=== PATIENT | male | born 1970 | race Caucasian/White ===

== ENCOUNTER 2016-07-31 18:52 | Observation (INO) | payer BC ==
[~2016-07-31] VITALS: Ht 177.8 cm; Wt 76.7 kg
[~2016-07-31 18:52] MED LIST: ALBUAER2 INH; SERT25TA PO
[2016-07-31] MEDS ORDERED: ASPIRIN 324 MG CHEW PO STA (19:28)
[2016-07-31 19:40] LABS: BASO % 0.5 %; BASO ABS # 0.05 K/uL (0-0.2); COMPLETE YES; EOS % 2.8 %; HEMATOCRIT 44.4 % (42-52); IG% 0.3 %; LYMPH % 22.2 %; LYMPH ABS # 2.05 K/uL (1.2-3.4); MEAN CELL VOLUME 100.9 fL (80-100); MEAN CORPUSCULAR HEMOGLOBIN 35.7 pg (25-34); MEAN CORPUSCULAR HGB CONC 35.4 g/dl (32-36); MEAN PLATELET VOLUME 9.1 fL (7.4-10.4); MONO % 9.1 %; NEUT % 65.1 %; PLATELET COUNT 341 K/uL (130-400); WHITE BLOOD COUNT 9.22 K/uL (4.8-10.8)
[2016-07-31 19:47] LABS: BUN/CREATININE RATIO 10.4 (10-20); CALCIUM 8.8 mg/dl (8.5-10.1); CREATININE 1.1 mg/dl (0.60-1.40); POTASSIUM 4.2 mmol/L (3.5-5.1)
[2016-07-31 19:53] LABS: PROTHROMBIN TIME (PATIENT) 10.5 SECONDS (9.0-12.0)
[2016-07-31] MEDS ORDERED: ONDANSETRON INJ 2 MG/ML 2 ML VIAL IV PRN (20:45)
[2016-07-31] MEDS ORDERED: NITROGLYCERIN 0.4 MG SL PER TAB CHARGE SL PRN (20:45)
[2016-07-31] MEDS ORDERED: ACETAMINOPHEN 325 MG TAB PO PRN (20:45)
--- NOTE | 2016-07-31 20:47 | DIAGNOSTIC IMAGING REPORT ---
CHEST ONE VIEW PORTABLE HISTORY: Atypical chest pain. COMPARISON: None. FINDINGS: The lungs are clear. Cardiac silhouette is normal in size. No pleural effusions. No pneumothorax. IMPRESSION: No acute process. Electronically signed by: Gordy Govea M.D. 07/31/2016 8:45 PM Dictated Date/Time: 07/31/2016 8:44 PM
[2016-07-31] MEDS ORDERED: IV FLUIDS COMPLETED PRN (21:00)
[2016-07-31 21:18] VITALS: BP 131/82; PULSE 60; TEMP 36.9; O2SAT 96
--- NOTE | 2016-07-31 22:21 | EMERGENCY ROOM VISIT NOTE ---
History Report prepared by Juan Carlos: Nichol Cam Under the Supervision of: Dr. Shiv Ring M.D. First contact with patient: 19:21 Chief Complaint: CHEST PAIN Stated Complaint: PRESSURE/PAIN IN CHEST Nursing Triage Summary: pt reports left sided chest pain for 3-4 days, no radiation, denies other s/s., denies cardiac hx. Patient spoke to primary care who advised patient to come to ED. History of Present Illness The patient is a 46 year old male who presents to the Emergency Room with complaints of intermittent chest pain that started approximately 3 to 4 days ago. He is accompanied by his . He rates his discomfort as a 3/10 and describes it as feeling like "pressure". He denies anything making his pain better or worse. He has not taken anything for his discomfort yet. Today he cleared his driveway of snow, and had no problems, but last night walking up a flight of stairs did exacerbate his discomfort. He denies any acute shortness of breath. He reports last night he woke up very diaphoretic and had to "towel himself off". He did not have any chest discomfort at that time however. He is a current smoker and admits to a chronic smoker's cough. The patient denies any recent fevers, abdominal pain, numbness or weakness in his extremities or swelling in his legs. He does not have any personal cardiac history and states he doesn't think there's a family history of heart disease, but he is not completely sure. Source of History: patient Onset: 3 to 4 days [place] Position: chest Symptom Intensity: 3/10 Quality: pressure Timing: intermittent, resolved Associated Symptoms: + cough, + diaphoresis, No SOB, No abdominal pain, No fevers, No numbness (numbness in extremities), No weakness (weakness in extremities) Review of Systems See HPI for pertinent positives & negatives. A total of 10 systems reviewed and were otherwise negative. Past Medical & Surgical Medical Problems: (1) Atypical chest pain (2) Cystic acne (3) Folliculitis (4) Syncope Surgical Problems: (1) History of hernia surgery Family History Patient reports no known family medical history. Social History Smoking Status: Current Every Day Smoker Alcohol Use: occasionally Marital Status: Housing Status: lives with family Occupation Status: employed Current/Historical Medications No Active Prescriptions or Reported Meds Allergies Coded Allergies: No Known Allergies (Unverified , 3/10/17) Physical Exam Vital Signs Date Time Temp Pulse Resp B/P Pulse Ox O2 Delivery O2 Flow Rate FiO2 07/31/16 20:04 65 18 117/69 100 Room Air 07/31/16 19:34 Room Air 07/31/16 19:17 62 07/31/16 19:01 96 Room Air 07/31/16 19:00 37.5 78 20 130/87 95 Room Air Physical Exam Constitutional: Vital signs reviewed. Eyes: Pupils are equal round reactive to light. Conjunctiva are noninjected. ENT: Pharynx is clear without erythema or exudate. Mucous membranes are moist. Neck supple without meningeal signs. Respiratory: Clear to auscultation bilaterally. Breath sounds are equal bilaterally. Cardiovascular: Regular rate and rhythm. No rubs or gallops. GI: Soft, nondistended and nontender. Bowel sounds are present. Musculoskeletal: No peripheral edema. No lower extremity tenderness. Integumentary: No cyanosis. Neurological: The patient is awake and alert. No focal deficits. Psychiatric: Normal affect. Medical Decision & Procedures ER Provider Diagnostic Interpretation: This X-Ray was reviewed and interpreted by myself and the radiologist. CHEST ONE VIEW PORTABLE HISTORY: Atypical chest pain. COMPARISON: None. FINDINGS: The lungs are clear. Cardiac silhouette is normal in size. No pleural effusions. No pneumothorax. IMPRESSION: No acute process. Electronically signed by: Gordy Govea M.D. 07/31/2016 8:45 PM Laboratory Results 07/31/16 19:20 Red Blood Count 4.40, Mean Corpuscular Volume 100.9, Mean Corpuscular Hemoglobin 35.7, Mean Corpuscular Hemoglobin Concent 35.4, Mean Platelet Volume 9.1, Neutrophils (%) (Auto) 65.1, Lymphocytes (%) (Auto) 22.2, Monocytes (%) ( Auto) 9.1, Eosinophils (%) (Auto) 2.8, Basophils (%) (Auto) 0.5, Neutrophils # ( Auto) 5.99, Lymphocytes # (Auto) 2.05, Monocytes # (Auto) 0.84, Eosinophils # ( Auto) 0.26, Basophils # (Auto) 0.05 07/31/16 19:20 Test 07/31/16 19:20 07/31/16 19:36 White Blood Count 9.22 K/uL (4.8-10.8) Red Blood Count 4.40 M/uL (4.7-6.1) Hemoglobin 15.7 g/dL (14.0-18.0) Hematocrit 44.4 % (42-52) Mean Corpuscular Volume 100.9 fL (80-100) Mean Corpuscular Hemoglobin 35.7 pg (25-34) Mean Corpuscular Hemoglobin Concent 35.4 g/dl (32-36) Platelet Count 341 K/uL (130-400) Mean Platelet Volume 9.1 fL (7.4-10.4) Neutrophils (%) (Auto) 65.1 % Lymphocytes (%) (Auto) 22.2 % Monocytes (%) (Auto) 9.1 % Eosinophils (%) (Auto) 2.8 % Basophils (%) (Auto) 0.5 % Neutrophils # (Auto) 5.99 K/uL (1.4-6.5) Lymphocytes # (Auto) 2.05 K/uL (1.2-3.4) Monocytes # (Auto) 0.84 K/uL (0.11-0.59) Eosinophils # (Auto) 0.26 K/uL (0-0.5) Basophils # (Auto) 0.05 K/uL (0-0.2) RDW Standard Deviation 49.6 fL (36.4-46.3) RDW Coefficient of Variation 13.3 % (11.5-14.5) Immature Granulocyte % (Auto) 0.3 % Immature Granulocyte # (Auto) 0.03 K/uL (0.00-0.02) Prothrombin Time 10.5 SECONDS (9.0-12.0) Prothromb Time International Ratio 1.0 (0.9-1.1) Activated Partial Thromboplast Time 26.8 SECONDS (21.0-31.0) Partial Thromboplastin Ratio 1.0 Anion Gap 9.0 mmol/L (3-11) Est Creatinine Clear Calc Drug Dose 83.1 ml/min Estimated GFR () 92.2 Estimated GFR (Non- 79.5 BUN/Creatinine Ratio 10.4 (10-20) Calcium Level 8.8 mg/dl (8.5-10.1) Bedside Troponin I 0.000 ng/ml (0-0.045) Laboratory results as reviewed by me. Medications Administered Medications (Trade) Dose Ordered Sig/Raza Route Start Time Stop Time Status Last Admin Dose Admin Aspirin (Aspirin Chew) 324 mg NOW STAT PO 07/31/16 19:28 07/31/16 19:29 DC 07/31/16 19:59 324 MG ECG Indication: chest pain Rate (beats per minute): 64 Rhythm: normal sinus (normal sinus rhythm) Findings: RBBB (incomplete RBBB), no ectopy, other (Bifasic T-waves in inferior leads) ED Course 1921: The patient was evaluated in room B12. A complete history and physical exam was performed. 1927: Aspirin 324 mg PO. 1999: I reevaluated the patient. He is not having any chest pain currently. I discussed my recommendation that he remain in the hospital for further evaluation and management and he verbalized complete understanding and agreement. 2006: I discussed the patients case with [facility]. The patient will be further evaluated. Medical Decision This is a 46-year-old male who presents with chest pain. Differential diagnosis includes unstable angina, NC, GERD, pneumonia, pleurisy. I did perform a limited focused review of portions of the patient's old chart on the electronic medical record. The patient has had no recent pertinent visits to this hospital. I did evaluate the patient as noted above. IV access was established. The patient was placed on a continuous automated manufacturing instructor. I did order and personally review the patient's 12-lead EKG and chest x-ray as described above. He has some nonspecific T-wave changes on EKG. I did order and review the patient's blood work as noted in the electronic medical record. His troponin is negative. I did discuss the test results with the patient. He is not having any chest discomfort at this time. I did recommend hospitalization for repeat cardiac enzymes and further evaluation. He was given aspirin. I did discuss case with the hospitalist and case preparer and liner. Consults Time Called: 2004 Consulting Physician: [facility]reras Hospitalist Returned Call: 2006 I discussed the patients case with Ciarra Contreras. The patient will be further evaluated. Impression Primary Impression: Left sided chest pain Scribe Attestation The scribe's documentation has been prepared under my direct and personally reviewed by me in its entirety. I confirm that the note above accurately reflects all work, treatment, procedures, and medical decision making performed by me. Departure Information Dispostion Being Evaluated By Hospitalist Prescriptions No Active Prescriptions or Reported Meds Referrals Merly Leary D.O. (PCP) Patient Instructions [facility]
[2016-07-31 22:37] VITALS: BP 131/82; PULSE 60; TEMP 36.9; O2SAT 96; Ht 177.8 cm; Wt 76.7 kg
--- NOTE | 2016-07-31 23:15 | HISTORY & PHYSICAL EXAMINATION ---
DATE OF ADMISSION: 07/31/2016 PRIMARY CARE PHYSICIAN: Dr. Leary. CHIEF COMPLAINT: Chest pain, off and on, for the last 2 days. HISTORY OF PRESENT COMPLAINT: He is a 46-year-old male without significant past medical history, except history of near syncope at the age of 39 without any probable cause. Apparently, has been complaining of chest pressure/pain involving the precordial area for the last 2 days. The pain lasts about 1-2 minutes and it can happen when he is at rest or at work. It does not have any other symptoms associated with it. No sweating. No dizziness. No nausea or vomiting and no radiation of the pain. No sweating, no palpitation. He called [facility] and was advised to come to the hospital for further evaluation. He denies to have any problem with his urine and/or bowel habit. He does not have any numbness or tingling in the extremities and he does not have any fever, any sore throat, any arthralgia at this time. PAST MEDICAL HISTORY: Significant for nonspecific lymphadenitis, history of near syncope at the age of 39 without any apparent cause. PAST SURGICAL HISTORY: Bilateral inguinal hernia repair and also repair of an umbilical hernia. FAMILY HISTORY: No significant family history of any diabetes, hypertension, high cholesterol or heart disease. SOCIAL HISTORY: He is . He has 2 children. He smokes about 1 pack per day for the last 30 years. He drinks alcohol socially, about 4 beers a day, noted in the chart. 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 ALLERGIES: NKDA. MEDICATIONS: He has not been taking anything regularly, except Wellbutrin; to quit smoking, he took only 2 doses of that. REVIEW OF SYSTEMS: Other systems reviewed are unremarkable, except mentioned in the H\T\P. PHYSICAL EXAMINATION: GENERAL: On examination in the Emergency Room, he was not having any acute pain. HEENT: Unremarkable. VITAL SIGNS: Temperature 37.5, pulse 65, blood pressure 117/69, saturation 100% on room air. HEENT: Unremarkable. NECK: Supple. No JVD, no bruit. CHEST: Clear to auscultate bilaterally. HEART: S1, S2 regular. No murmur appreciated. ABDOMEN: Soft, benign, nontender, no organomegaly. Bowel sounds present. No tenderness involving the left intracostal area. He used to have muscle spasm in that area and sometimes it bothers him so much that he has to lean toward right side to alleviate the discomfort while driving. happens. MUSCULOSKELETAL SYSTEM: No acute arthritis involving any joint. CENTRAL NERVOUS SYSTEM: He is alert, awake, oriented x3. No focal sensory or motor deficit appreciated. LABORATORY DATA: Today, white count was 9.22, H\T\H 15.7/44.4, platelet was 341. Sodium 142, potassium 4.2, chloride 107, carbon dioxide 26, BUN 11, creatinine 1.10, random glucose 127. Troponin 0. PT/INR unremarkable. Chest x-ray was negative. An EKG was in sinus rhythm, rate of 64 per minute, incomplete right bundle-branch block with associated minor ST-T wave changes. Compared with EKG of 2012, no significant change noticed. IMPRESSION AND PLAN: 1. Atypical chest pain. The only risk factors being a smoker; does not have any other risk factors. His pain has been off and on and sometimes in a sitting portion. He will be admitted to the telemetry unit, serial cardiac enzymes and echocardiogram. If he rules out, he will need to have a stress test as an outpatient, if it is not done tomorrow. We will put him on nitro as needed and aspirin. 2. History of high cholesterol. He was told to take [id number] medications, but no prescription medicine was given. 3. Tobacco abuse. He has been taking Wellbutrin for the last 2 days with a view to quit smoking.Will put him on Nicotine patch for now. 4. Gastrointestinal prophylaxis with Maalox, Mylanta as needed. 5. Deep venous thrombosis prophylaxis with SCDs and he should be ambulant with no pharmacological anticoagulation until the patient is still in the hospital for longer. 6. Code status. He will be a full code. In my clinical judgment, the beneficiary meets criteria as per CMS for 2-midnight stay in the hospital. D[place]
[2016-08-01 00:05] VITALS: O2SAT 96
[2016-08-01 00:23] VITALS: BP 132/80; PULSE 62; TEMP 37; O2SAT 96
[2016-08-01 03:15] LABS: HEMATOCRIT 41.9 % (42-52); MEAN CELL VOLUME 100.7 fL (80-100); MEAN CORPUSCULAR HEMOGLOBIN 35.6 pg (25-34); MEAN CORPUSCULAR HGB CONC 35.3 g/dl (32-36); MEAN PLATELET VOLUME 9.2 fL (7.4-10.4); PLATELET COUNT 315 K/uL (130-400); RED BLOOD COUNT 4.16 M/uL (4.7-6.1); WHITE BLOOD COUNT 8.25 K/uL (4.8-10.8)
[2016-08-01 03:33] LABS: BLOOD UREA NITROGEN 14 mg/dl (7-18); BUN/CREATININE RATIO 14.5 (10-20); CALCIUM 8.8 mg/dl (8.5-10.1); CARBON DIOXIDE 24 mmol/L (21-32); CHLORIDE 109 mmol/L (98-107); GLUCOSE 85 mg/dl (70-99); MAGNESIUM 2.2 mg/dl (1.8-2.4); POTASSIUM 4.1 mmol/L (3.5-5.1); SODIUM 143 mmol/L (136-145)
[2016-08-01 03:44] LABS: CHOLESTEROL 200 mg/dl (0-200); CHOLESTEROL/HDL RATIO 4.1; CKMB/CK RATIO 0.4 (0-3.0); HDL CHOLESTEROL 49 mg/dl; LDL CHOLESTEROL CALCULATED 130 mg/dl; TRIGLYCERIDES 103 mg/dl (0-150); VERY LOW DENSITY LIPOPROT CALC 21 mg/dl
[2016-08-01 04:05] VITALS: BP 131/86; PULSE 60; TEMP 36.8; O2SAT 95
[2016-08-01 07:40] VITALS: BP 126/80; PULSE 60; TEMP 37.1; O2SAT 95
--- NOTE | 2016-08-01 08:51 | ECHOCARDIOGRAM REPORT ---
*NOTICE TO RECEIVING LIBERTARIAN AGENCY This information is strictly Confidential and protected under [place] law. [place] law prohibits you from making any further disclosure of this information unless further disclosure is expressly permitted by the written consent of the person to whom it pertains or is authorized by law. A general authorization for the release of medical or other information is not sufficient for this purpose. Hospital accepts no responsibility if the information is made available to any other person, INCLUDING THE PATIENT. Interpretation Summary * Name: ALLA MAYEN Study Date: 08/01/2016 08:03 AM BP: 126/80 mmHg * Patient Location: [facility]\S\N282\S\2 HR: 60 * : 1970 (M/d/yyyy) Gender: Male * Age: 46 yrs Ethnicity: CA * Ordering Physician: Maday Suazo * Performed By: gAata Pereira RDCS * * Reason For Study: Chest pain * -- Conclusions -- * Normal LV chamber size and wall thickness. * Normal LV systolic function without regional wall motion abnormality, EF 55-60%. * Normal diastolic function. * No significant valvular pathology. Procedure Details * A complete two-dimensional transthoracic echocardiogram was performed (2D, M-mode, Doppler and color flow Doppler). Left Ventricle * The left ventricle is normal in size. * There is normal left ventricular wall thickness. * Ejection Fraction = 55-60%. * Left ventricular systolic function is normal. * The left ventricular wall motion is normal. Right Ventricle * The right ventricular cavity size is normal (basal dimension <4.2 cm in right ventricular apical 4-chamber view). * The right ventricular systolic function is normal as assessed by tricuspid annular plane systolic excursion (TAPSE) (normal >1.5 cm). Atria * The left atrial size is normal. * Right atrial size is normal. * No ASD detected; PFO is not assessed. Mitral Valve * The mitral valve is normal in structure and function. Tricuspid Valve * The tricuspid valve is normal in structure and function. Aortic Valve * The aortic valve is normal in structure and function. Pulmonic Valve * The pulmonary valve is not well seen, but the Doppler examination is normal without significant regurgitation or stenosis. Great Vessels * The aortic root and proximal ascending aorta are normal sized. Pericardium/Pleural * There is no pericardial effusion. Left Ventricular Diastolic Function * Pulse wave TDI of the anterior and posterior mitral annulas demonstrates normal LV relaxation MMode 2D Measurements and Calculations IVSd 0.84 cm LVIDd 5.3 cm LVIDs 3.7 cm LVPWd 0.81 cm IVS/LVPW 1.0 FS 29.9 % EDV(Teich) 132.8 ml ESV(Teich) 57.6 ml EF(Teich) 56.6 % EDV(cubed) 145.2 ml ESV(cubed) 50.1 ml EF(cubed) 65.5 % LV mass(C)d 153.0 grams SV(Teich) 75.1 ml SV(cubed) 95.1 ml Ao root diam 2.8 cm Ao root area 6.3 cm\S\2 ACS 1.9 cm LA dimension 3.2 cm asc Aorta Diam 3.1 cm LA/Ao 1.1 LVOT diam 2.0 cm LVOT area 3.2 cm\S\2 LVAd ap4 29.4 cm\S\2 LVLd ap4 8.7 cm EDV(MOD-sp4) 83.8 ml EDV(sp4-el) 84.0 ml LVAs ap4 16.7 cm\S\2 LVLs ap4 6.7 cm ESV(MOD-sp4) 35.6 ml ESV(sp4-el) 35.3 ml EF(MOD-sp4) 57.6 % EF(sp4-el) 58.0 % LVAd ap2 20.5 cm\S\2 LVLd ap2 7.8 cm EDV(MOD-sp2) 43.8 ml EDV(sp2-el) 45.3 ml LVAs ap2 12.3 cm\S\2 LVLs ap2 6.5 cm ESV(MOD-sp2) 19.4 ml ESV(sp2-el) 19.8 ml EF(MOD-sp2) 55.7 % EF(sp2-el) 56.4 % LVLd %diff -11.49 % EDV(MOD-bp) 62.9 ml LVLs %diff -2.65 % ESV(MOD-bp) 26.6 ml EF(MOD-bp) 57.7 % SV(MOD-sp4) 48.2 ml SV(MOD-sp2) 24.4 ml SV(MOD-bp) 36.3 ml SV(sp4-el) 48.7 ml SV(sp2-el) 25.6 ml Doppler Measurements and Calculations MV E max kamaljit 67.3 cm/sec MV A max kamaljit 29.1 cm/sec MV E/A 2.3 MV dec time 0.18 sec Ao V2 max 126.2 cm/sec Ao max PG 6.4 mmHg Ao max PG (full) 0.27 mmHg PAUL(V,A) 3.1 cm\S\2 PAUL(V,D) 3.1 cm\S\2 LV V1 max PG 6.1 mmHg LV V1 max 123.4 cm/sec PA V2 max 107.1 cm/sec PA max PG 4.6 mmHg PA acc slope 486.0 cm/sec\S\2 PA acc time 0.13 sec TR max kamaljit 226.0 cm/sec PA pr(Accel) 18.6 mmHg
[2016-08-01] MEDS ORDERED: ASPIRIN 81 MG ECTAB PO SCH (09:00)
[2016-08-01] MEDS ORDERED: NICOTINE 14 MG/24 HR TDSY TD SCH (09:00)
[2016-08-01 09:54] LABS: CKMB/CK RATIO 0.5 (0-3.0)
--- NOTE | 2016-08-01 12:02 | Progress Note ---
Subjective Date of Service: Aug 01, 2016. Subjective Pt evaluation today including: conversation w/ patient, physical exam, lab review, review of studies, review of inpatient medication list Saw/examined the patient in room 282 He is doing well, chest pain resolved He states that it was a "pressure" on the left side of his chest not associated with exertion - he shoveled snow on Wednesday with no chest pressure Yesterday, while seated, he felt some chest pressure, which has now resolved No other symptoms currently Problem List Medical Problems: (1) Left sided chest pain Status: Acute Review of Systems Constitutional: No chills, No fever Respiratory: No cough, No dyspnea on exertion, No shortness of breath, No sputum, No wheezing Cardiac: No chest pain (resolved), No edema, No palpitations Abdomen: No diarrhea, No nausea, No pain, No vomiting Medications Current Inpatient Medications Medications (Trade) Dose Ordered Sig/Raza Route Start Time Stop Time Status Last Admin Dose Admin Acetaminophen (Tylenol Tab) 650 mg Q4H PRN PO 07/31/16 20:45 08/30/16 20:44 Ondansetron HCl (Zofran Inj) 4 mg Q6H PRN IV 07/31/16 20:45 08/30/16 20:44 Nitroglycerin (Nitrostat Tab) 0.4 mg UD PRN SL 07/31/16 20:45 08/30/16 20:44 Aspirin (Ecotrin Tab) 81 mg QAM PO 08/01/16 09:00 08/31/16 08:59 08/01/16 09:13 81 MG Miscellaneous (Iv Fluids Completed) 1 ea PRN PRN N/A 07/31/16 21:00 07/31/17 20:59 Nicotine (Nicoderm Cq 14MG Patch) 1 patch QAM TD 08/01/16 09:00 08/31/16 08:59 08/01/16 00:19 1 PATCH Miscellaneous (Remove Nicoderm Patch) 1 ea HS N/A 08/01/16 21:00 08/31/16 20:59 Objective Vital Signs Date Time Temp Pulse Resp B/P Pulse Ox O2 Delivery O2 Flow Rate FiO2 08/01/16 09:15 Room Air 08/01/16 07:40 37.1 60 18 126/80 95 08/01/16 04:05 Room Air 08/01/16 04:05 36.8 60 20 131/86 95 Room Air 08/01/16 00:23 37.0 62 20 132/80 96 Room Air 08/01/16 00:05 96 Room Air 07/31/16 22:37 36.9 60 18 131/82 96 Room Air 07/31/16 21:18 36.9 60 18 131/82 96 Room Air 07/31/16 21:01 73 18 137/82 07/31/16 20:04 65 18 117/69 100 Room Air 07/31/16 19:34 Room Air 07/31/16 19:17 62 07/31/16 19:01 96 Room Air 07/31/16 19:00 37.5 78 20 130/87 95 Room Air Physical Exam General Appearance: no apparent distress Respiratory/Chest: chest non-tender, lungs clear, normal breath sounds, no respiratory distress, no accessory muscle use Cardiovascular: regular rate, rhythm, no edema, no murmur Abdomen: normal bowel sounds, non tender, soft Extremities: normal inspection, no pedal edema Neurologic/Psychiatric: no motor/sensory deficits, alert, normal mood/affect Skin: normal color Lymphatic: no adenopathy Laboratory Results Last 24 Hours Test 07/31/16 19:20 07/31/16 19:36 08/01/16 02:41 08/01/16 09:10 White Blood Count 9.22 K/uL 8.25 K/uL Red Blood Count 4.40 M/uL 4.16 M/uL Hemoglobin 15.7 g/dL 14.8 g/dL Hematocrit 44.4 % 41.9 % Mean Corpuscular Volume 100.9 fL 100.7 fL Mean Corpuscular Hemoglobin 35.7 pg 35.6 pg Mean Corpuscular Hemoglobin Concent 35.4 g/dl 35.3 g/dl Platelet Count 341 K/uL 315 K/uL Mean Platelet Volume 9.1 fL 9.2 fL Neutrophils (%) (Auto) 65.1 % Lymphocytes (%) (Auto) 22.2 % Monocytes (%) (Auto) 9.1 % Eosinophils (%) (Auto) 2.8 % Basophils (%) (Auto) 0.5 % Neutrophils # (Auto) 5.99 K/uL Lymphocytes # (Auto) 2.05 K/uL Monocytes # (Auto) 0.84 K/uL Eosinophils # (Auto) 0.26 K/uL Basophils # (Auto) 0.05 K/uL RDW Standard Deviation 49.6 fL 49.8 fL RDW Coefficient of Variation 13.3 % 13.4 % Immature Granulocyte % (Auto) 0.3 % Immature Granulocyte # (Auto) 0.03 K/uL Prothrombin Time 10.5 SECONDS Prothromb Time International Ratio 1.0 Activated Partial Thromboplast Time 26.8 SECONDS Partial Thromboplastin Ratio 1.0 Sodium Level 142 mmol/L 143 mmol/L Potassium Level 4.2 mmol/L 4.1 mmol/L Chloride Level 107 mmol/L 109 mmol/L Carbon Dioxide Level 26 mmol/L 24 mmol/L Anion Gap 9.0 mmol/L 10.0 mmol/L Blood Urea Nitrogen 11 mg/dl 14 mg/dl Creatinine 1.10 mg/dl 1.00 mg/dl Est Creatinine Clear Calc Drug Dose 83.1 ml/min 94.3 ml/min Estimated GFR () 92.2 103.4 Estimated GFR (Non- 79.5 89.2 BUN/Creatinine Ratio 10.4 14.5 Random Glucose 127 mg/dl 85 mg/dl Calcium Level 8.8 mg/dl 8.8 mg/dl Bedside Troponin I 0.000 ng/ml Magnesium Level 2.2 mg/dl Total Creatine Kinase 162 U/L 145 U/L Creatine Kinase MB 0.6 ng/ml 0.7 ng/ml Creatine Kinase MB Ratio 0.4 0.5 Troponin I < 0.015 ng/ml < 0.015 ng/ml Triglycerides Level 103 mg/dl Cholesterol Level 200 mg/dl HDL Cholesterol 49 mg/dl LDL Cholesterol, Calculated 130 mg/dl VLDL Cholesterol, Calculated 21 mg/dl Cholesterol/HDL Ratio 4.1 Thyroid Stimulating Hormone (TSH) 5.440 uIu/ml Test 08/01/16 11:34 Assessment and Plan This is a 46 year old male with no past medical history here with chest pain Chest Pain r/o ACS patient presented with chest pain EKG with no ST-T wave changes cardiac enzymes negative x 3 echo performed, with no significant findings chest pain resolved low likely related to a heart disease outpatient stress test if pain persists more likely musculoskeletal Tobacco Use Disorder patient would like to stop smoking states that he would like a nicotine patch and wellbutrin stopped smoking a few months back and he wants to join her Has stopped in the past with Chantix - but side effects made him stop Chantix Borderline Cholesterolemia total cholesterol ~ 200 LDL ~ 130 patient counseled on diet change and OTC fish oils DVT ppx SCDs FULL CODE d/c home today Discharge planning: home
[2016-08-01] MEDS ORDERED: NCDT14 TD (12:11)
[2016-08-01] MEDS ORDERED: BUPR150T47 PO (12:11)
--- NOTE | 2016-08-01 12:23 | Discharge Instructions ---
Discharge Instructions Date of Service Aug 01, 2016. Admission Reason for Admission: Atypical Chest Pain Discharge Discharge Diagnosis / Problem: Atypical Chest Pain, likely musculoskeletal Discharge Goals Goal(s): Decrease discomfort, Improve function, Diagnostic testing, Therapeutic intervention Activity Recommendations Activity Limitations: resume your previous activity . Instructions / Follow-Up Instructions / Follow-Up Please follow-up with Dr. Yanes (covering for Dr. Leary) on August 06 @ 10:50AM * You will be prescribed Zyban to help stop smoking - take 150mg once a day for three days, and then twice a day (separate these doses by 8 hours and take the second dose no later than 6PM) * You will also be given nicotine patches to help stop smoking * Your cholesterol (200) and LDL (130) are borderline - decrease saturated fats and sugars in your diet - recheck lipid panel in 3 months * Your TSH was slightly high - recheck TSH and reflex Free T4 (labwork) in 4-6 weeks Current Hospital Diet Patient's current hospital diet: AHA Diet (Heart Healthy) Discharge Diet Recommended Diet: AHA Diet (Heart Healthy) Pending Studies Studies pending at discharge: no Laboratory Results Lipid Panel Test 08/01/16 02:41 Range/Units Triglycerides Level 103 0-150 mg/dl Cholesterol Level 200 0-200 mg/dl HDL Cholesterol 49 mg/dl Cholesterol/HDL Ratio 4.1 LDL Cholesterol, Calculated 130 mg/dl Medical Emergencies . Who to Call and When: Medical Emergencies: If at any time you feel your situation is an emergency, please call 911 immediately. . Non-Emergent Contact Non-Emergency issues call your: Primary Care Provider . . "Provider Documentation" section prepared by Olga Lidia Cosme. VTE Core Measure Inpt VTE Proph given/why not?: SCD's
--- NOTE | 2016-08-01 12:25 | Discharge Summary ---
Discharge Summary Date of Service Aug 01, 2016. Discharge Summary Admission Date: Jul 31, 2016 at 20:39 Discharge Date: Aug 01, 2016 Discharge Disposition: Home Principal Diagnosis: Chest Pain, likely Musculoskeletal Tobacco Use Disorder Medication Reconciliation New Medications: Bupropion (Zyban) 150 Mg Tabcr 150 MG PO BID for 60 Days, #120 TAB Nicotine (Nicotine) 1 Patch Tdsy 14 MG TD DAILY for 30 Days, #1 BOX 1 Refill Admission Information Physical Exam (per Admitting): DATE OF ADMISSION: 07/31/2016 PRIMARY CARE PHYSICIAN: Dr. Leary. CHIEF COMPLAINT: Chest pain, off and on, for the last 2 days. HISTORY OF PRESENT COMPLAINT: He is a 46-year-old male without significant past medical history, except history of near syncope at the age of 39 without any probable cause. Apparently, has been complaining of chest pressure/pain involving the precordial area for the last 2 days. The pain lasts about 1-2 minutes and it can happen when he is at rest or at work. It does not have any other symptoms associated with it. No sweating. No dizziness. No nausea or vomiting and no radiation of the pain. No sweating, no palpitation. He called [facility] and was advised to come to the hospital for further evaluation. He denies to have any problem with his urine and/or bowel habit. He does not have any numbness or tingling in the extremities and he does not have any fever, any sore throat, any arthralgia at this time. PAST MEDICAL HISTORY: Significant for nonspecific lymphadenitis, history of near syncope at the age of 39 without any apparent cause. PAST SURGICAL HISTORY: Bilateral inguinal hernia repair and also repair of an umbilical hernia. FAMILY HISTORY: No significant family history of any diabetes, hypertension, high cholesterol or heart disease. SOCIAL HISTORY: He is . He has 2 children. He smokes about 1 pack per day for the last 30 years. He drinks alcohol socially, about 4 beers a day, noted in the chart. 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 ALLERGIES: NKDA. MEDICATIONS: He has not been taking anything regularly, except Wellbutrin; to quit smoking, he took only 2 doses of that. REVIEW OF SYSTEMS: Other systems reviewed are unremarkable, except mentioned in the H\T\P. PHYSICAL EXAMINATION: GENERAL: On examination in the Emergency Room, he was not having any acute pain. HEENT: Unremarkable. VITAL SIGNS: Temperature 37.5, pulse 65, blood pressure 117/69, saturation 100% on room air. HEENT: Unremarkable. NECK: Supple. No JVD, no bruit. CHEST: Clear to auscultate bilaterally. HEART: S1, S2 regular. No murmur appreciated. ABDOMEN: Soft, benign, nontender, no organomegaly. Bowel sounds present. No tenderness involving the left intracostal area. He used to have muscle spasm in that area and sometimes it bothers him so much that he has to lean toward right side to alleviate the discomfort while driving. happens. MUSCULOSKELETAL SYSTEM: No acute arthritis involving any joint. CENTRAL NERVOUS SYSTEM: He is alert, awake, oriented x3. No focal sensory or motor deficit appreciated. LABORATORY DATA: Today, white count was 9.22, H\T\H 15.7/44.4, platelet was 341. Sodium 142, potassium 4.2, chloride 107, carbon dioxide 26, BUN 11, creatinine 1.10, random glucose 127. Troponin 0. PT/INR unremarkable. Chest x-ray was negative. An EKG was in sinus rhythm, rate of 64 per minute, incomplete right bundle-branch block with associated minor ST-T wave changes. Compared with EKG of 2012, no significant change noticed. IMPRESSION AND PLAN: 1. Atypical chest pain. The only risk factors being a smoker; does not have any other risk factors. His pain has been off and on and sometimes in a sitting portion. He will be admitted to the telemetry unit, serial cardiac enzymes and echocardiogram. If he rules out, he will need to have a stress test as an outpatient, if it is not done tomorrow. We will put him on nitro as needed and aspirin. 2. History of high cholesterol. He was told to take [id number] medications, but no prescription medicine was given. 3. Tobacco abuse. He has been taking Wellbutrin for the last 2 days with a view to quit smoking.Will put him on Nicotine patch for now. 4. Gastrointestinal prophylaxis with Maalox, Mylanta as needed. 5. Deep venous thrombosis prophylaxis with SCDs and he should be ambulant with no pharmacological anticoagulation until the patient is still in the hospital for longer. 6. Code status. He will be a full code. In my clinical judgment, the beneficiary meets criteria as per CMS for 2-midnight stay in the hospital. Hospital Course This is a 46 year old male with no past medical history here with chest pain Chest Pain r/o ACS patient presented with chest pain EKG with no ST-T wave changes cardiac enzymes negative x 3 echo performed, with no significant findings chest pain resolved low likely related to a heart disease outpatient stress test if pain persists more likely musculoskeletal Tobacco Use Disorder patient would like to stop smoking states that he would like a nicotine patch and wellbutrin stopped smoking a few months back and he wants to join her Has stopped in the past with Chantix - but side effects made him stop Chantix Borderline Cholesterolemia total cholesterol ~ 200 LDL ~ 130 patient counseled on diet change and OTC fish oils DVT ppx SCDs FULL CODE d/c home today Discharge planning: home Total time spent on discharge = 38 minutes This includes examination of the patient, discharge planning, medication reconciliation, and communication with other providers. Discharge Instructions Please follow-up with Dr. Yanes (covering for Dr. Leary) on August 06 @ 10:50AM * You will be prescribed Zyban to help stop smoking - take 150mg once a day for three days, and then twice a day (separate these doses by 8 hours and take the second dose no later than 6PM) * You will also be given nicotine patches to help stop smoking * Your cholesterol (200) and LDL (130) are borderline - decrease saturated fats and sugars in your diet - recheck lipid panel in 3 months * Your TSH was slightly high - recheck TSH and reflex Free T4 (labwork) in 4-6 weeks
[2016-08-01 13:09] VITALS: BP 126/80; PULSE 60; TEMP 37.1; O2SAT 95
== END 2016-08-01 13:28 | disposition home or self-care (01) ==
LOC: ENRESERVDT → ENRESERVTM → C.EDB 18:55 → C.MED 20:39
PROVIDERS: ADMIT Internal Medicine; ATTEND Family Medicine
DX: R07.9 Chest pain, unspecified (principal); F17.210 Nicotine dependence, cigarettes, uncomplicated; E78.00 Pure hypercholesterolemia, unspecified